=== PATIENT | male | born 1965 | race Caucasian/White ===

== ENCOUNTER 2019-07-23 07:39 | Outpatient (CLI) | payer BC, SELFPAY ==
--- NOTE | ~2019-07-23 | CT_ITS ---
EXAMINATION: CT lung screening EXAM DATE: 07/23/2019 08:05 INDICATION: Personal history of nicotine dependence. TECHNIQUE: Spiral low dose CT of the chest without contrast. Axial, coronal and sagittal images were reviewed. The dose-length product (DLP) for this examination was 155.12 mGy-cm. The exposure was t ailored according to patient size (auto mA exposure control), and iterative reconstruction (ASIR) was used as additional dose reduction technique. There is no prior study for comparison. FINDINGS: There is 2-3 mm pleural-based left lower lobe nodule on image 67 likely postinfectious. No suspicious pulmonary nodules. There is mild emphysema and hyperinflation. Tracheobronchial tree is patent. There is no mediastinal, hilar or axillary lymphadenopathy. There are no pleural or peric ardial effusions. There is no pneumothorax. Heart normal in size. There is moderate coronary ar terial calcification, arterial sclerosis. Upper abdomen is unremarkable. There is moderate thoracic spondylosis without osteoblastic or osteolytic lesions identified. IMPRESSION: Lung-RADS category 2, benign appearance or behavior (<1% chance of malignancy); recommend continued LDCT screening in 1 year. > Reviewed, dictated and finalized at location A. 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
== END 2019-07-23 07:40 | disposition home or self-care (01) ==
PROVIDERS: PCP Family Medicine; Visit Provider Physician Assistant
DX: Z12.2 Encounter for screening for malignant neoplasm of respiratory organs (principal); Z87.891 Personal history of nicotine dependence
CPT/HCPCS: G0297

== ENCOUNTER 2019-10-13 11:51 | Outpatient (CLI) | payer BC, SELFPAY ==
--- NOTE | ~2019-10-13 | CT_ITS ---
EXAMINATION: CT abdomen pelvis w con DATE: 10/13/2019 12:28 INDICATION: Abdominal pain, nausea and vomiting TECHNIQUE: Computed tomography (CT) of the abdomen and pelvis was performed with 100 cc Omnipaque 350 intravenous contrast. Automated exposure control and iterative reconstruction technique were employe d. Exam dose: 539.51 mGy-cm total exam DLP. COMPARISON: 01/04/2018 CT abdomen pelvis FINDINGS: The lung bases are clear of infiltrate or consolidation. Normal heart size. No pericardial or pleural effusion. There is extensive hepatic steatosis. No hepatic, splenic, pancreatic, adrenal or renal space-occupyi ng mass lesion is evident. No urinary tract calculus or hydroureteronephrosis. There is calcification but no aneurysm of the abdominal aorta. No intraperitoneal or retroperitoneal or pelvic mass lesion or adenopathy or ascites. There is prostate mild enlargement and prostate calcification. The urinary bladder is unremarkable. No bowel obstruction is evident. Status post appendectomy. No intraperitoneal free air. Small fat-containing umbilical and right inguinal hernias. Degenerative changes of the thoracic and lumbar spine. IMPRESSION: Hepatic steatosis No bowel obstruction or free air Reviewed, dictated and finalized at Location A. Reviewed, dictated and finalized at location A.
[2019-10-13 12:22] LABS: Estimated Glomerular Filt Rate > 60
[2019-10-13 12:53] LABS: Basophils Percent Auto 0.7 % (0.2-1.2); Eosinophils Percent Auto 0.5 % (0-4.4); Hematocrit 45.8 % (42.0-52.0); Hemoglobin 16.3 g/dL (14.0-18.0); Immature Granulocyte Absolute 0.02 K/mm3 (0.00-0.031); Immature Granulocyte Percent A 0.3 % (0-0.5); Lymphocytes Absolute Auto 0.77 K/mm3 (0.9-3.2); Lymphocytes Percent Auto 13.1 % (18.3-44.2); Mean Corpuscular HGB Conc 35.6 g/dl (32-36); Mean Corpuscular Volume 92.7 fl (80-100); Mean Platelet Volume 8.5 fl (7.4-10.4); Monocytes Absolute Auto 0.5 K/mm3 (0.1-0.6); Monocytes Percent Auto 8.3 % (2.6-8.5); Neutrophils Absolute Auto 4.5 K/mm3 (1.3-6.7); Neutrophils Percent Auto 77.1 % (45.5-73.1); Platelet Count Result 141 k/mm3 (150-375); Red Blood Count 4.94 M/mm3 (4.6-6.20); Red Cell Distribution Width 12.8 % (11.5-14.5); White Blood Count 5.9 K/mm3 (4.5-10.0)
[2019-10-13 13:07] LABS: Alanine Aminotransferase 193 U/L (4-50); Albumin Level 3.7 g/dL (3.5-5.1); Alkaline Phosphatase 189 U/L (38-126); Amylase 78 U/L (30-110); Aspartate Amino Transferase 616 U/L (17-59); Bilirubin,Total 2.1 mg/dL (0.2-1.3); Blood Urea Nitrogen 14 mg/dL (9-20); Calcium 8.4 mg/dL (8.4-10.2); Carbon Dioxide 24 mmol/L (22-30); Chloride 100 mmol/L (98-107); Estimated Glomerular Filt Rate > 60; Glucose 98 mg/dL (75-110); Lipase 187 U/L (23-300); Potassium 4.1 mmol/L (3.4-5.0); Sodium 132 mmol/L (137-145)
== END 2019-10-13 11:52 | disposition home or self-care (01) ==
PROVIDERS: PCP Family Medicine; Visit Provider Physician Assistant
DX: R10.9 Unspecified abdominal pain (principal); K76.0 Fatty (change of) liver, not elsewhere classified
CPT/HCPCS: 36415; 74177; 80053; 82150; 83690; 85025; Q9967

== ENCOUNTER 2019-10-14 07:37 | Outpatient (CLI) | payer BC, SELFPAY ==
--- NOTE | ~2019-10-14 | US_ITS ---
EXAMINATION: US right upper quadrant DATE: 10/14/2019 08:18 INDICATION: Abnormal liver function tests. TECHNIQUE: Multiple grayscale and Doppler ultrasound images of the abdomen were obtained. COMPARISON: CT abdomen and pelvis 10/13/2019 FINDINGS: The visualized portions of the head, body, and tail of the pancreas are normal. There is di ffuse hepatic steatosis. No liver surface nodularity. The gallbladder is normal in size. No gallstone s or gallbladder wall thickening. There was no sonographic Marte sign. The common duct is normal and measures 4 mm. There is normal flow in main portal vein. IMPRESSION: 1. Diffuse hepatic steatosis. Reviewed, dictated and finalized at location A.
== END 2019-10-14 07:38 | disposition home or self-care (01) ==
PROVIDERS: PCP Family Medicine; Visit Provider Family Medicine
DX: R10.9 Unspecified abdominal pain (principal); R74.8 Abnormal levels of other serum enzymes; K76.0 Fatty (change of) liver, not elsewhere classified
CPT/HCPCS: 76705

== ENCOUNTER 2020-10-05 09:40 | Emergency (ER) | payer BC, SELFPAY ==
[2020-10-05] VITALS (9 sets, daily range): BP systolic 140–192; BP diastolic 93–113; PULSE 87–97; RESP 15–28; TEMP 36.6; O2SAT 96–100
--- NOTE | ~2020-10-05 | XR_ITS ---
EXAMINATION: XR chest 1V portable DATE: 10/05/2020 11:08 INDICATION: One month of dyspnea TECHNIQUE: frontal view of the chest was obtained. COMPARISON: Chest radiograph dated 12/10/[address] dated 07/23/2019 FINDINGS: The lungs are clear with no focal airspace opacities, pulmonary edema, pleural effusion or pneumothor ax. The cardiomediastinal silhouette is normal. Moderate thoracic spondylosis. IMPRESSION: 1. No acute cardiopulmonary disease. Reviewed, dictated and finalized at location A.
--- NOTE | 2020-10-05 09:46 | ECG_ITS ---
Measurements Intervals [place] Rate: 103 P: 78 OR: 118 QRS: 67 QRSD: 85 T: 55 QT: 339 QTc: 444 Interpretive Statements SINUS TACHYCARDIA WITH SHORT OR INTERVAL INCOMPLETE RIGHT BUNDLE BRANCH BLOCK BASELINE ARTIFACT- I, II, III, AVR, AVL, AVF, V1-V5 ABNORMAL ECG Electronically Signed On 10-05-2020 10:31:05 CDT by Albert Jim D.O.
--- NOTE | 2020-10-05 09:54 | ED.SOB ---
HPI - SOB/Dyspnea General Chief Complaint: Shortness of Breath/Dyspnea Stated Complaint: diff breathing onset 2 hrs ago Time Seen by Provider: 10/05/20 09:54 History of Present Illness HPI Narrative: 55 yo male w/ h/o htn presents to the ED for SOB. He has been acutely SOB for the past 2 hours. Although he says that he has had mild intermittent dyspnea for the past week. This is primarily with exertion. He does report mild orthopnea as well. He reports no h/o respiratory disorder although he does have a prescription for albuterol. He has had intermittent chills, no fever. No Chest pain. No leg swelling or pain. Related Data Home Medications Medication Instructions Recorded Confirmed aspirin 81 mg tablet,delayed 81 mg PO DAILY 05/27/19 10/13/19 release omeprazole 20 mg capsule,delayed 20 mg PO DAILY 05/27/19 release Allergies Allergy/AdvReac Type Severity Reaction Status Date / Time No Known Allergies Allergy Verified 10/05/20 09:52 Review of Systems Review of Systems: All systems reviewed & are unremarkable except as noted in HPI and below Constitutional: Constitutional: Reports chills, Reports fatigue and Denies fever(s) Eyes: Eyes: Reports no additional eye complaints Cardiovascular: Cardiovascular: Denies chest pain Respiratory: Respiratory: Reports chest congestion, Reports cough, Reports dyspnea and Reports wheezing Gastrointestinal: Gastrointestinal: Denies abdominal pain, Denies nausea and Denies vomiting Genitourinary: Genitourinary: Reports no additional male genitourinary complaints Musculoskeletal: Musculoskeletal: Denies back pain Neurologic: Denies confusion, Denies dizziness and Denies weakness [facility] Past Medical History Medical History Alcohol dependence, uncomplicated Anxiety Essential (primary) hypertension Surgical History Surgical History H/O vasectomy History of appendectomy (~12/2017) Family History Family History Father Hypertension Mother Hypertension Family history of malignant neoplasm of breast in first degree relative Other Asthma Family history of Alzheimer's disease Social History Social History Smoking packs per day: 2 Smoking cigarettes per day: 40.0 Years smoked: 20 Smoking pack-years: 40.00 Smoking status: Current every day smoker Alcohol intake: current Drinks per week: 70 Exam Const: General: alert and ill appearing acutely Nutritional Appearance: well nourished Orientation/consciousness: patient oriented x3 Other: Mild distress. HENMT: Head: normal to inspection Neck: Neck: normal visual inspection Chest: Chest palpation & inspection: no tenderness Resp: Effort & Inspection: labored and tachypneic Auscultation: wheezes left upper and diminished lung sounds Cardio: Rate: regular rate Rhythm: regular rhythm GI: GI Palp: Yes Soft to palpation and No Tenderness to palpation present (GI) Skin: General skin exam: normal color Neuro: General: patient oriented x3, moves all extremities, no focal motor deficits and CN's II-XI intact bilaterally Speech: normal speech Extrem: General: normal to inspection and no edema Course Vital Signs Vital signs: Vital Signs Temperature 36.6 C 10/05/20 09:46 Pulse Rate 97 10/05/20 09:46 Respiratory Rate 28 H 10/05/20 09:46 Blood Pressure 192/113 H 10/05/20 09:46 Pulse Oximetry 96 10/05/20 09:46 Temperature 36.6 C 10/05/20 09:46 Pulse Rate 92 10/05/20 12:52 Respiratory Rate 18 10/05/20 12:52 Blood Pressure 140/93 H 10/05/20 12:52 Pulse Oximetry 100 10/05/20 12:52 MDM - SOB/Dyspnea MDM Narrative Medical decision making narrative: CXR negative. Most likely undiagnosed COPD. Will do continuous nebulizer treatment, s
--- NOTE | 2020-10-05 10:07 | PC.NURSE ---
pt put on 2L of 02 via nasal cannula per EDP verbal order for comfort.
[2020-10-05 10:08] LABS: Basophils Absolute Auto 0.1 K/mm3 (0.0-0.1); Basophils Percent Auto 0.4 % (0.2-1.2); Eosinophils Absolute Auto 0.1 K/mm3 (0-0.3); Eosinophils Percent Auto 0.4 % (0-4.4); Hematocrit 42.6 % (42.0-52.0); Hemoglobin 15.2 g/dL (14.0-18.0); Immature Granulocyte Absolute 0.11 K/mm3 (0.00-0.031); Immature Granulocyte Percent A 0.8 % (0-0.5); Lymphocytes Absolute Auto 0.45 K/mm3 (0.9-3.2); Lymphocytes Percent Auto 3.2 % (18.3-44.2); Mean Corpuscular HGB Conc 35.7 g/dl (32-36); Mean Corpuscular Hemoglobin 32.9 pg (26-34); Mean Corpuscular Volume 92.2 fl (80-100); Mean Platelet Volume 8.2 fl (7.4-10.4); Monocytes Absolute Auto 0.8 K/mm3 (0.1-0.6); Neutrophils Absolute Auto 12.4 K/mm3 (1.3-6.7); Neutrophils Percent Auto 89.2 % (45.5-73.1); Platelet Count Result 168 k/mm3 (150-375); Red Blood Count 4.62 M/mm3 (4.6-6.20); Red Cell Distribution Width 12.1 % (11.5-14.5); White Blood Count 13.9 K/mm3 (4.5-10.0)
[2020-10-05 10:16] LABS: Anion Gap 8 mmol/L (8-16); Blood Urea Nitrogen 7 mg/dL (9-20); Calcium 9.8 mg/dL (8.4-10.2); Carbon Dioxide 24 mmol/L (22-30); Chloride 101 mmol/L (98-107); Estimated CRCL calculation 107 ml/min; Estimated Glomerular Filt Rate > 60; Glucose 117 mg/dL (75-110); Sodium 133 mmol/L (137-145)
[2020-10-05] MEDS: DEXAMETHASONE SOD PHOS INJ 4 MG/ML VIAL 10 MG IV PUSH (10:31)
[2020-10-05 10:54] LABS: NT Pro B Type Natriuretic Pept 120 pg/mL (5-100); Troponin I < 0.012 ng/mL (0.000-0.034)
[2020-10-05] MEDS: IPRATROPIUM BR 0.02% INH SOLN 0.5 MG/2.5 ML VIAL 1 MG INHALATION (11:09)
[2020-10-05] MEDS: ALBUTEROL SULFATE NEB 2.5 MG/0.5 ML INH 10 MG INHALATION (11:10)
[2020-10-05 11:31] LABS: Alveolar/Arterial O2 Gradient 45.9 mmHg; Base Excess ABG -0.1 mEq/l (+/-2.0); Carboxyhemoglobin 2.7 % THb (0-2.0); Fractional Inspired Oxygen 28 %; HCO3 ABG 24.4 mEq/l (22.0-26.0); Methemoglobin ABG 0.2 %THb (0-1.5); Oxygen Content ABG 20.9 %vol (16.0-22.0); PCO2 ABG 39.5 mmHg (35.0-45.0); PO2 ABG 107.1 mmHg (80.0-100.0); PO2 FiO2 Ratio Arterial Blood 3.83 %; Reduced Hemoglobin 2.1 %THb (0-5.0); Total Hemoglobin 15.6 g/dL (12.0-18.0); pH ABG 7.409 (7.350-7.450)
[2020-10-05 11:32] LABS: Device NASAL CANNULA; Site Drawn LEFT BRACHIAL
[2020-10-05] MEDS: LABETALOL HCL INJ 100 MG/20 ML VIAL 10 MG IV PUSH (12:06)
== END 2020-10-05 12:54 | disposition home or self-care (01) ==
PROVIDERS: Emergency Provider Emergency Medicine; PCP Family Medicine
DX: J44.1 Chronic obstructive pulmonary disease with (acute) exacerbation (principal); I10 Essential (primary) hypertension; F17.210 Nicotine dependence, cigarettes, uncomplicated; Z79.82 Long term (current) use of aspirin
CPT/HCPCS: 36415; 36600; 71045; 80048; 82375; 82805; 83050; 83880; 84484; 85025; 93005; 94640; 96374; 96375; 99284; J1100

== ENCOUNTER 2020-10-25 06:35 | Outpatient (CLI) | payer BC, SELFPAY ==
--- NOTE | ~2020-10-25 | CT_ITS ---
EXAMINATION: CT lung screening DATE: 10/25/2020 06:55 INDICATION: Personal history of nicotine dependence, current smoker with 30 pack year history TECHNIQUE: Computed tomography (CT) of the chest was performed without intravenous contrast. The dose -length product (DLP) was 205.24 mGy-cm. Automated exposure control and iterative reconstruction tech [employer] were employed. COMPARISON: 07/03/2019 FINDINGS: There is mild emphysema. A few fissural lymph nodes are noted. No suspicious pulmonary nodu les are identified. There is no pleural effusion or pneumothorax. No pathologically enlarged thoracic lymph nodes are identified. The heart size is normal. Calcified coronary artery atherosclerosis is n oted. There is moderate thoracic spondylosis. IMPRESSION: 1. Lung-RADS category 2: Benign appearance or behavior. Continue annual screening with noncontrast lo w-dose chest CT in 12 months. Reviewed, dictated and finalized at location A. IMPRESSION: 1. Lung-RADS category 2: Benign appearance or behavior. Continue annual screeni ng with noncontrast low-dose chest CT in 12 months.
== END 2020-10-25 06:36 | disposition home or self-care (01) ==
PROVIDERS: PCP Family Medicine; Visit Provider Physician Assistant Medical
DX: Z12.2 Encounter for screening for malignant neoplasm of respiratory organs (principal); Z87.891 Personal history of nicotine dependence
CPT/HCPCS: 71271

== ENCOUNTER 2020-11-10 08:01 | Outpatient (CLI) | payer BC, SELFPAY ==
--- NOTE | 2020-11-17 12:11 | WPDPFTINT ---
PFT Procedure Performed PFT Procedure Performed Spirometry with Pre/Post Bronchodilator Plethysmography (Lung Vol) Diffusing Cap (DLCO) Flow Vol Loop PFT Interpretation DOS: 11/10/2020 REQUESTING: Dr. Powers REASON FOR TESTING: shortness of breath PULMONARY FUNCTION TESTS Results are reliable and reproducible. Spirometry: FEV1 is 57%, 1.91 L moderately decreased. FVC is 81% normal. FEV1/ FVC is decreased 55%. There is a 16% increase in the FEV1 after bronchodilator administration, greater than 200 ml, which is a significant response. Lung volumes: Total lung capacity 129% consistent with mild hyperinflation. Residual volume is 182% and this is consistent with severe air trapping. RV/TLC is increased 44 % also consistent with air trapping. Airway resistance is increased 248%. Diffusion: DLCO 79%, mildly decreased. Flow volume loop: Mild scooping of the expiratory limb. Inspiratory limb is normal. IMPRESSION: Moderate obstructive ventilatory defect with good response to bronchodilator, mild hyperinflation, severe air trapping and mild decrease in diffusion which may be due to tobacco smoking. In the proper clinical setting, this may represent asthma-COPD overlap. Evelia Henry MD
== END 2020-11-10 08:02 | disposition home or self-care (01) ==
LOC: ANHPFT 08:03
PROVIDERS: PCP Family Medicine; Visit Provider Family Medicine
DX: R06.09 Other forms of dyspnea (principal)
CPT/HCPCS: 94060; 94726; 94729

== ENCOUNTER 2021-04-11 13:24 | Emergency (ER) | payer BC, SELFPAY ==
--- NOTE | ~2021-04-11 | CT_ITS ---
EXAMINATION: CTA brain carotid EXAM DATE: 04/11/2021 17:02 INDICATION: neck pain/hill/dizziness. Right-sided head pain, neck pain. TECHNIQUE: Noncontrast head CT. Spiral CTA of the carotid arteries was performed with intravenous i njection 100 cc of Omnipaque 350. Axial, coronal, sagittal reformatted images reviewed. Additional r eformatted images created on dedicated 3-D workstation. NASCET comparable standard used to assess th e degree of arterial stenosis. Spiral CT angiogram cerebral arteries performed with the same intrave nous injection of contrast. Source images of the brain CTA transferred to dedicated workstation for 3 -D rotational image creation. Coronal, sagittal maximum intensity pixel images also reviewed. The d ose-length product (DLP) for this examination was 1242.23 mGy-cm. The exposure was tailored accordi ng to patient size, and iterative reconstruction (ASIR) was used as additional dose reduction techniq ue. Comparison is made to prior examination from 04/30/2016. FINDINGS: There is moderate left carotid bulb, mild right carotid bulb arterial sclerosis and atheros clerosis. There is 25% left carotid bulb stenosis, 0% stenosis on the right. The vertebral arteries a re codominant. There is no carotid or vertebral basilar arterial dissection or fibromuscular dysplas ia. There are no cerebral artery aneurysms. There is symmetric cerebral artery arborization. The sagi ttal, transverse and sigmoid sinuses enhance normally, no venous sinus thrombosis. Internal cerebral veins also enhance normally. Mild microangiopathy.There is no acute intraparenchymal hemorrhage. No evidence of intraparenchymal brain mass lesion. No evidence of acute infarction. There is no mass effect or midline shift. There is no obstructive hydrocephalus suspected. There are no extra-axial collections. There are no areas of abnormal enhancement on the post contrast images. Incidental Findings: There is moderate to severe disc disease at C5-6 and 6-7, significant neural for aminal stenosis at these 2 levels and also at C3-4 mostly from uncovertebral joint arthropathy. There is moderate reversal of the normal cervical lordosis which may be positional or spasm. IMPRESSION: 1. No acute carotid or intracranial findings. 2. Left carotid bulb 25% stenosis. Right carotid bulb 0% stenosis. 3. Advanced cervical uncovertebral joint arthropathy with significant neural foraminal stenosis C3-4 , C5-6 and 6-7. Reviewed, dictated and finalized at location A. RMATION CLERK BROKERAGE IMPRESSION: 1. No acute carotid or intracranial findings. 2. Left carotid bulb 25% stenosis. Right carotid bulb 0% stenosis. 3. Advanced cervical uncovertebral joint arthropathy with significant neural f oraminal stenosis C3-4, C5-6 and 6-7.
[2021-04-11 13:26] VITALS: BP 188/98; PULSE 80; RESP 18; TEMP 36.7; O2SAT 99
--- NOTE | 2021-04-11 13:39 | ECG_ITS ---
Measurements Intervals [place] Rate: 74 P: 63 VT: 150 QRS: 50 QRSD: 89 T: 46 QT: 375 QTc: 417 Interpretive Statements SINUS RHYTHM INCOMPLETE RIGHT BUNDLE BRANCH BLOCK BASELINE ARTIFACT- II, III, AVF BORDERLINE ECG Electronically Signed On 04-11-2021 13:51:28 EMPLOYEE DEVELOPMENT SPECIALIST by Albert Jim D.O.
--- NOTE | 2021-04-11 15:30 | ED.DIZZY ---
HPI - Dizziness General Chief Complaint: Dizziness Stated Complaint: head and neck pain, dizzy Time Seen by Provider: 04/11/21 13:44 Source: patient Mode of arrival: ambulatory Limitations: no limitations History of Present Illness HPI Narrative: 56-year-old male Patient says he felt fine when he woke up this morning While he was on his way to work, which is [employer], he started having a sharp pain in the right occiput just behind the ear which subsequently spread down more into the neck This is accompanied by a feeling of dizziness which he describes kind of vaguely, did not feel like he was going to faint although he notes that he has never fainted so he is not quite sure what it would feel like, and does not report a feeling of true vertigo with a spinning type of sensation either He took some OTC medication and the symptoms have abated to a great extent but not resolved He does not report any other sensory issues, no hearing loss, no tinnitus, no double vision He also does not have any new weakness or ataxia He reports that a number of years ago he had an episode of dizziness which to the best of his recollection was much more severe and ultimately diagnosed as a TIA Related Data Home Medications Medication Instructions Recorded Confirmed aspirin 81 mg tablet,delayed 81 mg PO DAILY 05/27/19 10/11/20 release omeprazole 20 mg capsule,delayed 20 mg PO DAILY 05/27/19 10/11/20 release Allergies Allergy/AdvReac Type Severity Reaction Status Date / Time No Known Allergies Allergy Verified 04/11/21 13:40 Review of Systems Review of Systems: All systems reviewed & are unremarkable except as noted in HPI and below Constitutional: Constitutional: Reports no additional constitutional complaints, Denies chills, Denies fever(s) and Denies headache(s) Eyes: Eyes: Reports no additional eye complaints and Denies change in vision ENT: Reports dizziness, Denies headache(s) and Denies sore throat Cardiovascular: Cardiovascular: Denies chest pain and Denies dyspnea Respiratory: Respiratory: Denies cough and Denies dyspnea Gastrointestinal: Gastrointestinal: Denies abdominal pain, Denies diarrhea, Denies nausea and Denies vomiting Genitourinary: Genitourinary: Denies dysuria and Denies urinary frequency Musculoskeletal: Musculoskeletal: Denies deformity, Denies arthralgias, Denies joint swelling and Denies numbness Integumentary/Breasts: Skin/Breast: Denies rash and Denies wounds Neurologic: Reports dizziness, Reports headache(s), Denies focal weakness and Denies numbness Psychiatric: Psychiatric: Reports no additional psychiatric complaints Endocrine: Endocrine: Reports no additional endocrine complaints Hematologic/Lymphatic: Hematologic/Lymphatic: Reports no additional hematologic/lymphatic complaints Allergic/Immunologic: Allergic/Immunologic: Reports no additional allergic/immunologic complaints PMFSH Past Medical History Medical History Alcohol dependence, uncomplicated Anxiety Essential (primary) hypertension Surgical History Surgical History H/O vasectomy History of appendectomy (~12/2017) Family History Family History Father Hypertension Mother Hypertension Family history of malignant neoplasm of breast in first degree relative Other Asthma Family history of Alzheimer's disease Social History Social History Smoking packs per day: 1.5 Smoking cigarettes per day: 30.0 Years smoked: 20 Smoking pack-years: 30.00 Smoking status: Current every day smoker Alcohol intake: current Drinks per week: 70 Alcohol use details: 8-10 beers per day Exam Const: General: cooperative, no acute distress and alert Orientation/consciousness: patient darlene
[2021-04-11 16:01] LABS: Basophils Percent Auto 0.5 % (0.2-1.2); Eosinophils Absolute Auto 0.1 K/mm3 (0-0.3); Eosinophils Percent Auto 1.4 % (0-4.4); Hematocrit 40.7 % (42.0-52.0); Hemoglobin 14.1 g/dL (14.0-18.0); Immature Granulocyte Absolute 0.02 K/mm3 (0.00-0.031); Immature Granulocyte Percent A 0.3 % (0-0.5); Lymphocytes Absolute Auto 1.23 K/mm3 (0.9-3.2); Lymphocytes Percent Auto 18.6 % (18.3-44.2); Mean Corpuscular HGB Conc 34.6 g/dl (32-36); Mean Corpuscular Hemoglobin 33.5 pg (26-34); Mean Corpuscular Volume 96.7 fl (80-100); Mean Platelet Volume 8.4 fl (7.4-10.4); Monocytes Absolute Auto 0.7 K/mm3 (0.1-0.6); Monocytes Percent Auto 10.1 % (2.6-8.5); Neutrophils Absolute Auto 4.6 K/mm3 (1.3-6.7); Neutrophils Percent Auto 69.1 % (45.5-73.1); Platelet Count Result 171 k/mm3 (150-375); Red Blood Count 4.21 M/mm3 (4.6-6.20); Red Cell Distribution Width 12.2 % (11.5-14.5); White Blood Count 6.6 K/mm3 (4.5-10.0)
[2021-04-11 16:07] LABS: INR 0.9; Prothrombin Time 12.4 Seconds (11.1-14.7)
[2021-04-11 16:16] VITALS: BP 150/94; PULSE 74
[2021-04-11 16:18] LABS: Anion Gap 4 mmol/L (8-16); Blood Urea Nitrogen 11 mg/dL (9-20); Calcium 8.8 mg/dL (8.4-10.2); Carbon Dioxide 29 mmol/L (22-30); Chloride 102 mmol/L (98-107); Estimated CRCL calculation 85 ml/min; Estimated Glomerular Filt Rate > 60; Glucose 88 mg/dL (65-110); Potassium 3.6 mmol/L (3.4-5.0); Sodium 135 mmol/L (137-145)
[2021-04-11 16:19] VITALS: BP 168/93; PULSE 76
[2021-04-11 16:21] VITALS: BP 162/92; PULSE 75
[2021-04-11 16:30] LABS: Troponin I < 0.012 ng/mL (0.000-0.034)
[2021-04-11 19:02] VITALS: BP 157/85; PULSE 71; RESP 18; O2SAT 98
== END 2021-04-11 19:03 | disposition home or self-care (01) ==
PROVIDERS: Emergency Provider Emergency Medicine; PCP Family Medicine
DX: M47.812 Spondylosis without myelopathy or radiculopathy, cervical region (principal); R42 Dizziness and giddiness; M54.2 Cervicalgia; F17.210 Nicotine dependence, cigarettes, uncomplicated; I10 Essential (primary) hypertension; F41.9 Anxiety disorder, unspecified
CPT/HCPCS: 36415; 70496; 70498; 80048; 84484; 85025; 85610; 93005; 99284; Q9967

== ENCOUNTER 2021-12-07 10:44 | Emergency (ER) | payer BC, SELFPAY ==
--- NOTE | ~2021-12-07 | CT_ITS ---
EXAMINATION: CT abdomen pelvis w con DATE: 12/07/2021 12:19 INDICATION: Epigastric pain and dizziness. TECHNIQUE: Computed tomography (CT) of the abdomen and pelvis was performed with 100 cc Omnipaque 300 intravenous contrast. The dose-length product was 1168.68 mGy-cm. Automated exposure control and ite rative reconstruction technique were employed. COMPARISON: CT dated 10/13/2019. FINDINGS: Lung bases are unremarkable. Heart size normal. No significant pleural or pericardial effus ion. There is mild atherosclerosis without aneurysm. No lymphadenopathy. Fatty infiltration of the liver. Gallbladder is present. The spleen, pancreas, adrenal glands and rig ht kidney are unremarkable. Small subcentimeter hypodensity exophytic posteriorly from the left kidne y, too small to characterize, although likely a benign cyst. Nonobstructive bowel gas pattern. There is an accessory splenule. Small fat-containing umbilical hernia. Mild lumbar spondylosis. No acute fracture or traumatic malalignment. IMPRESSION: 1. No acute abdominal abnormality. 2: Hepatic steatosis. Reviewed, dictated and finalized at location A.
--- NOTE | ~2021-12-07 | CT_ITS ---
EXAMINATION: CT brain wo con INDICATION: Dizziness COMPARISON: 04/11/2021 TECHNIQUE: Standard unenhanced head CT. The dose-length product (DLP) was 605.33 mGy-cm. The mA was a djusted according to patient size. Iterative reconstruction technique was employed. FINDINGS: There is no intracranial hemorrhage, acute infarction, or abnormal mass lesion. The ventric les are normal. There is no abnormal mass effect or midline shift. The skinner-white matter differentiat ion is normal. The basal cisterns are patent. The orbits are normal. The paranasal sinuses, mastoids and calvarium are normal. IMPRESSION: 1. No acute intracranial abnormality. Reviewed, dictated and finalized at location B.
[2021-12-07 10:45] VITALS: BP 182/103; PULSE 84; RESP 20; TEMP 36.4; O2SAT 98
--- NOTE | 2021-12-07 10:48 | ECG_ITS ---
Measurements Intervals [place] Rate: 87 P: 50 MT: 144 QRS: 40 QRSD: 85 T: 37 QT: 343 QTc: 413 Interpretive Statements SINUS RHYTHM INCOMPLETE RIGHT BUNDLE BRANCH BLOCK BASELINE ARTIFACT- III, AVL, AVF BORDERLINE ECG Electronically Signed On 12-07-2021 15:30:04 CDT by Albert Jim D.O.
--- NOTE | 2021-12-07 10:50 | PC.NURSE ---
While pt was having blood drawn he become unresponsive to staff. Eyes were open with blank stare and pt was diaphoretic. Episode lasted approx 30 sec and pt was disoriented when episode was over.
--- NOTE | 2021-12-07 11:03 | ED.DIZZY ---
HPI - Dizziness General Chief Complaint: Dizziness Stated Complaint: dizzy Time Seen by Provider: 12/07/21 10:55 History of Present Illness HPI Narrative: 56-year-old male presents emergency room secondary to dizziness. He been complaining of dizziness according to his for a month. Apparently got worse today so he got concerned and wanted to come to the emergency department. What he describes as a spinning type sensation and seem to be worse when he changes position or moves his head. Denies any focal weakness. Is an alcoholic. He drinks excessive amount of beer every day. His states that recently he will be sitting out and she has to try to get him to come in a house and she has to assist him in getting up and getting into the house so that he does not fall. Denies any history of cardiac abnormalities however he is taking Plavix and aspirin. Also taking a statin. He is not a good historian. Related Data Home Medications Medication Instructions Recorded Confirmed aspirin 81 mg tablet,delayed 81 mg PO DAILY 05/27/19 10/11/20 release (Adult Low Dose Aspirin) omeprazole 20 mg capsule,delayed 20 mg PO DAILY 05/27/19 10/11/20 release Allergies Allergy/AdvReac Type Severity Reaction Status Date / Time No Known Allergies Allergy Verified 04/11/21 13:40 Review of Systems Review of Systems: CONSTITUTIONAL: Denies fever, chills, or sweats. EYES: Denies visual changes, redness, or discharge. ENT: Denies rhinorrhea, congestion, sore throat, or otalgia. CARDIOVASCULAR: Denies chest pain, palpitations, or edema. RESPIRATORY: Denies cough or dyspnea. GASTROINTESTINAL: Upper abdominal pain with no associated vomiting diarrhea GENITOURINARY: Denies dysuria or hematuria. SKIN: Denies rash or itching. MUSCULOSKELETAL: Denies back pain, joint pain, or myalgia. NEUROLOGIC: Dizziness but no focal weakness PSYCHIATRIC: Denies anxiety or depression. [facility] Past Medical History Medical History Alcohol dependence, uncomplicated Anxiety Essential (primary) hypertension Surgical History Surgical History H/O vasectomy History of appendectomy (~12/2017) Family History Family History Father Hypertension Mother Hypertension Family history of malignant neoplasm of breast in first degree relative Other Asthma Family history of Alzheimer's disease Social History Social History Smoking packs per day: 1.5 Smoking cigarettes per day: 30.0 Years smoked: 20 Smoking pack-years: 30.00 Smoking status: Current every day smoker Alcohol intake: current Drinks per week: 70 Alcohol use details: 8-10 beers per day Exam Narrative: APPEARANCE: Not well appearing, no pain or distress, well-nourished. Head normocephalic and atraumatic. EYES: PERRLA/EOMI, conjunctivae very clear. Lateral nystagmus greater to the left NOSE: Normal with no drainage EARS:TMS clear Karen Maynard, with good light reflex. THROAT: Pharynx clear, no exudate. NECK: Supple. No adenopathy, no masses. RESPIRATORY: Airway patent, respirations nonlabored. Clear to auscultation bilaterally, no rales, rhonchi, wheezing. CARDIOVASCULAR: Regular rate and rhythm without murmurs, rubs, or gallops. ABDOMINAL: Soft, nontender, nondistended, no hepatosplenomegaly Musculoskeletal: Moves all extremities. Strength/ROM intact, No edema, No calf tenderness. NEURO: Cranial nerves II through XII intact. Nonfocal examination. Tremors noted and has an unsteady when he tries to stand SKIN:: Warm, dry. Normal Color PSYCHIATRIC: Normal affect/mood, normal interaction Course Vital Signs Vital signs: Vital Signs Temperature 97.5 F L 12/07/21 10:45 Pulse Rate 84 12/07/21 10:45 Respiratory Rate 20 12/07/21 10:45 Blood Pressure 182/103 H
[2021-12-07] MEDS: MECLIZINE HCL 25 MG TABLET PO (11:21)
[2021-12-07 11:23] LABS: Basophils Absolute Auto 0.1 K/mm3 (0.0-0.1); Basophils Percent Auto 0.7 % (0.2-1.2); Eosinophils Absolute Auto 0.1 K/mm3 (0-0.3); Hematocrit 42.9 % (42.0-52.0); Hemoglobin 15.7 g/dL (14.0-18.0); Immature Granulocyte Absolute 0.04 K/mm3 (0.00-0.031); Immature Granulocyte Percent A 0.6 % (0-0.5); Lymphocytes Percent Auto 14.2 % (18.3-44.2); Mean Corpuscular HGB Conc 36.6 g/dl (32-36); Mean Corpuscular Volume 92.9 fl (80-100); Mean Platelet Volume 8.4 fl (7.4-10.4); Monocytes Absolute Auto 0.5 K/mm3 (0.1-0.6); Monocytes Percent Auto 7.4 % (2.6-8.5); Neutrophils Absolute Auto 5.4 K/mm3 (1.3-6.7); Neutrophils Percent Auto 76.1 % (45.5-73.1); Platelet Count Result 148 k/mm3 (150-375); Red Blood Count 4.62 M/mm3 (4.6-6.20); Red Cell Distribution Width 13.1 % (11.5-14.5)
[2021-12-07 11:37] LABS: Basophils Percent Auto 0.4 % (0.2-1.2); Eosinophils Absolute Auto 0.1 K/mm3 (0-0.3); Eosinophils Percent Auto 0.7 % (0-4.4); Hematocrit 43.4 % (42.0-52.0); Hemoglobin 15.5 g/dL (14.0-18.0); Immature Granulocyte Absolute 0.03 K/mm3 (0.00-0.031); Immature Granulocyte Percent A 0.4 % (0-0.5); Lymphocytes Absolute Auto 0.93 K/mm3 (0.9-3.2); Lymphocytes Percent Auto 13.5 % (18.3-44.2); Mean Corpuscular HGB Conc 35.7 g/dl (32-36); Mean Corpuscular Hemoglobin 33.8 pg (26-34); Mean Corpuscular Volume 94.8 fl (80-100); Mean Platelet Volume 8.2 fl (7.4-10.4); Monocytes Absolute Auto 0.6 K/mm3 (0.1-0.6); Neutrophils Absolute Auto 5.3 K/mm3 (1.3-6.7); Platelet Count Result 130 k/mm3 (150-375); Red Blood Count 4.58 M/mm3 (4.6-6.20); Red Cell Distribution Width 13.1 % (11.5-14.5); White Blood Count 6.9 K/mm3 (4.5-10.0)
[2021-12-07 11:56] LABS: Anion Gap 4 mmol/L (8-16); Bilirubin,Total 0.9 mg/dL (0.2-1.3); Blood Urea Nitrogen 10 mg/dL (9-20); Calcium 8.6 mg/dL (8.4-10.2); Carbon Dioxide 25 mmol/L (22-30); Chloride 104 mmol/L (98-107); Estimated CRCL calculation 96 ml/min; Estimated Glomerular Filt Rate > 60; Glucose 116 mg/dL (65-110); Potassium 4.2 mmol/L (3.4-5.0); Sodium 133 mmol/L (137-145)
[2021-12-07 11:57] LABS: Alanine Aminotransferase 147 U/L (6-50); Albumin Level 3.8 g/dL (3.5-5.1); Alkaline Phosphatase 149 U/L (38-126); Aspartate Amino Transferase 284 U/L (17-59)
[2021-12-07 11:59] VITALS: BP 151/87; PULSE 88
[2021-12-07 12:01] VITALS: BP 164/104; PULSE 87
[2021-12-07 12:02] VITALS: BP 165/101; PULSE 90
[2021-12-07 12:56] VITALS: PULSE 89; RESP 15; O2SAT 100
[2021-12-07 13:32] LABS: Lipase 205 U/L (23-300)
[2021-12-07 14:08] LABS: Ammonia 12 umol/L (9-30)
[2021-12-07 17:00] LABS: Ethanol < 10 mg/dL (<10)
== END 2021-12-07 13:53 | disposition home or self-care (01) ==
PROVIDERS: Emergency Provider Emergency Medicine; PCP Emergency Medicine
DX: R42 Dizziness and giddiness (principal); R74.01 Elevation of levels of liver transaminase levels; K70.0 Alcoholic fatty liver; F10.20 Alcohol dependence, uncomplicated; I10 Essential (primary) hypertension; Z79.82 Long term (current) use of aspirin; F17.210 Nicotine dependence, cigarettes, uncomplicated
CPT/HCPCS: 36415; 70450; 74177; 80053; 80307; 82140; 83690; 85025; 93005; 99284; A9270; Q9967

== ENCOUNTER → 2022-06-14 08:08 | Outpatient (CLI) | payer BC, SELFPAY ==
--- NOTE | ~2022-06-14 | CT_ITS ---
EXAMINATION: CT lung screening DATE: 06/14/2022 08:26 INDICATION: Personal history nicotine dependence, current or 25 pack year history TECHNIQUE: Computed tomography (CT) of the chest was performed without intravenous contrast. The dose -length product (DLP) was 178.64 mGy-cm. 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 COMPARISON: 10/25/2020 FINDINGS: There is a 2 mm nodule of the right upper lobe. There is mild emphysema. Fissural lymph nod es are again noted. No pleural effusion or pneumothorax. No pathologically enlarged thoracic lymph no denis are identified. The heart size is normal. The lungs are free of acute opacities. Calcified cifuentes ry artery atherosclerosis is noted. The liver is diffusely low in attenuation when compared with the spleen, consistent with hepatic steatosis. There is moderate thoracic spondylosis. IMPRESSION: 1. Lung-RADS category 2: Benign appearance or behavior. Continue annual screening with noncontrast lo w-dose chest CT in 12 months. Reviewed, dictated and finalized at location [facility]. [place] IMPRESSION: 1. Lung-RADS category 2: Benign appearance or behavior. Continue annual screeni ng with noncontrast low-dose chest CT in 12 months.
== END ==
PROVIDERS: PCP Emergency Medicine; Visit Provider Emergency Medicine
DX: Z12.2 Encounter for screening for malignant neoplasm of respiratory organs (principal); F17.210 Nicotine dependence, cigarettes, uncomplicated
CPT/HCPCS: 71271

== ENCOUNTER 2023-02-14 09:48 | Outpatient (CLI) | payer BC, SELFPAY ==
[2023-02-14 19:08] LABS: Basophils Absolute Auto 0.1 K/mm3 (0.0-0.1); Basophils Percent Auto 0.5 % (0.2-1.2); Eosinophils Absolute Auto 0.1 K/mm3 (0-0.3); Eosinophils Percent Auto 1.1 % (0-4.4); Hemoglobin 15.2 g/dL (14.0-18.0); Immature Granulocyte Absolute 0.11 K/mm3 (0.00-0.031); Immature Granulocyte Percent A 1.1 % (0-0.5); Lymphocytes Absolute Auto 1.14 K/mm3 (0.9-3.2); Lymphocytes Percent Auto 11.6 % (18.3-44.2); Mean Corpuscular HGB Conc 33.8 g/dl (32-36); Mean Corpuscular Hemoglobin 34.8 pg (26-34); Mean Platelet Volume 8.7 fl (7.4-10.4); Monocytes Absolute Auto 0.8 K/mm3 (0.1-0.6); Monocytes Percent Auto 8.6 % (2.6-8.5); Neutrophils Absolute Auto 7.5 K/mm3 (1.3-6.7); Neutrophils Percent Auto 77.1 % (45.5-73.1); Platelet Count Result 182 k/mm3 (150-375); Red Blood Count 4.37 M/mm3 (4.6-6.20); Red Cell Distribution Width 12.4 % (11.5-14.5); White Blood Count 9.8 K/mm3 (4.5-10.0)
[2023-02-14 19:24] LABS: Alanine Aminotransferase 50 U/L (6-50); Albumin Level 4.4 g/dL (3.5-5.1); Alkaline Phosphatase 84 U/L (38-126); Anion Gap 3 mmol/L (8-16); Aspartate Amino Transferase 91 U/L (17-59); Bilirubin,Total 0.5 mg/dL (0.2-1.3); Blood Urea Nitrogen 7 mg/dL (9-20); Calcium 9.3 mg/dL (8.4-10.2); Carbon Dioxide 34 mmol/L (22-30); Chloride 100 mmol/L (98-107); Estimated Glomerular Filt Rate > 60; Glucose 94 mg/dL (65-110); Potassium 4.7 mmol/L (3.4-5.0); Sodium 137 mmol/L (137-145)
[2023-02-14 20:30] LABS: Folic Acid > 20.0 ng/mL (2.76->20)
== END 2023-02-14 09:49 | disposition home or self-care (01) ==
LOC: ANHGOSHLAB 09:50
PROVIDERS: PCP Emergency Medicine; Visit Provider Emergency Medicine
DX: F10.10 Alcohol abuse, uncomplicated (principal)
CPT/HCPCS: 36415; 80053; 82607; 82746; 85025

== ENCOUNTER 2023-12-22 14:00 | Outpatient (CLI) | payer BC, SELFPAY ==
--- NOTE | ~2023-12-22 | XR_ITS ---
XR hip RT 2V w AP pelvis Ordering provider: SHYANNE Jessica History: . PAIN IN RT HIP RADIATING DOWN TO RT CALF . Comparison: None. FINDINGS: BONES: No acute fracture or dislocation. HIP JOINT SPACES: Normal. SACROILIAC JOINT SPACES/LUMBAR SPINE: The sacroiliac joint spaces are normal. Mild degenerative allen es of the visualized lower lumbar spine. PUBIC SYMPHYSIS: Pubic symphysitis. SOFT TISSUES: Normal. IMPRESSION: No acute osseous abnormality pelvis and right hip. Reviewed, dictated and finalized at location A.
== END 2023-12-22 14:01 | disposition home or self-care (01) ==
LOC: ANHIMG 14:04
PROVIDERS: PCP Emergency Medicine; Visit Provider Nurse Practitioner Family
DX: M25.551 Pain in right hip (principal)
CPT/HCPCS: 73502

== ENCOUNTER 2024-02-07 16:35 | Emergency (ER) | payer BC, SELFPAY ==
--- NOTE | ~2024-02-07 | CT_ITS ---
EXAMINATION: CT brain wo con DATE: 02/07/2024 17:07 INDICATION: Head laceration. Patient on blood thinners. TECHNIQUE: Computed tomography (CT) of the head was performed without intravenous contrast. The mA wa s adjusted according to patient size. Iterative reconstruction technique was employed. Exam dose: 68 1.00 mGy-cm total exam DLP. COMPARISON: 12/07/2021 FINDINGS: No intracranial mass lesion or hemorrhage or cerebrovascular accident. No midline shift or mass effect. Bilateral carotid siphon internal carotid artery calcifications. No subdural or epidural hematoma. The orbital contents are unremarkable. No significant abnormality of the included paranasal sinuses and mastoid air cells. No fracture or bone destruction of the cranial vault. IMPRESSION: No skull fracture or acute intracranial finding Reviewed, dictated and finalized at [facility]. Reviewed, dictated and finalized at location A.
[2024-02-07 16:36] VITALS: BP 147/77; PULSE 64; RESP 18; TEMP 36.6; O2SAT 99
[2024-02-07 18:23] VITALS: BP 145/79; PULSE 60; RESP 18; O2SAT 100
--- NOTE | 2024-02-07 18:33 | ED.HEATRA ---
HPI - Head Injury General Chief complaint: Head Injury Stated complaint: head injury Time Seen by Provider: 02/07/24 18:03 Source: patient Mode of arrival: ambulatory Limitations: no limitations History of Present Illness HPI Narrative: This is a 58 year old male that presents to the ER for a head injury. Reports he stood up and hit his head on a car port. Reports laceration to the area. Reports he takes aspirin and Plavix daily. He did not lose consciousness. He is not up-to-date on tetanus. Denies vision changes, vomiting, numbness, or weakness. Related Data Home Medications Medication Instructions Recorded Confirmed aspirin 81 mg tablet,delayed 81 mg PO DAILY 05/27/19 10/01/23 release (Adult Low Dose Aspirin) multivitamin with minerals-folic tablet PO 10/01/23 10/01/23 acid 400 mcg-lycopene 370 mcg tablet (One-A-Day Men's 50 Plus) omega-3 fatty acids-fish oil 360 1 cap PO DAILY 10/01/23 10/01/23 mg-1,200 mg capsule (Fish Oil) Allergies Allergy/AdvReac Type Severity Reaction Status Date / Time No Known Allergies Allergy Verified 10/01/23 08:28 Review of Systems Review of Systems: CONSTITUTIONAL: Denies fever EYES: Denies visual changes GASTROINTESTINAL: Denies vomiting NEUROLOGIC: Reports headache. Denies numbness, or weakness. All systems reviewed & are unremarkable except as noted in HPI and below PMFSH Past Medical History Medical History Alcohol dependence, uncomplicated Anxiety Essential (primary) hypertension Surgical History Surgical History H/O vasectomy History of appendectomy (~12/2017) Family History Family History Father Hypertension Mother Hypertension Family history of malignant neoplasm of breast in first degree relative Other Asthma Family history of Alzheimer's disease Social History Social History (Updated 10/01/23 @ 08:32 by Elsa Montalvo MA) Social History: Caffeine-soda daily Smoking packs per day: 1.5 Smoking cigarettes per day: 30.0 Years smoked: 20 Smoking pack-years: 30.00 Smoking status: Current every day smoker (1.5 ppd. for 24 years.) Alcohol intake: former Substance use: never Substance use type: does not use Do You Feel Safe in your Home?: Yes Lack of Transportation: No Lack of Food: Never True Current Housing: I Have Housing Concerned About Future Housing: No Difficulty Paying Gas/Electric Bills: No Difficulty Paying for Meds: No Currently Unemployed: No Education: Trade/Vocational Certificate Difficulty w/ Childcare or Family Care: No Exam Narrative: GENERAL: Well-appearing, well-nourished, and in no acute distress. HEAD: Normocephalic. 8cm flap laceration to the top of the scalp EYES: PERRLA and EOMI. ENT: Nares clear, no rhinorrhea or epistaxis. Mucous membranes moist. Oropharynx without tonsillar hypertrophy exudate or other lesions. Bilateral TMs pearly skinner non-bulging NECK: Supple. No adenopathy or masses. No midline spinal tenderness CHEST: Clear to auscultation. No respiratory distress. No wheezes rales or rhonchi HEART: Regular rate and rhythm. No murmur heard. Normal peripheral pulses. EXTREMITIES: Normal range of motion. No edema. SKIN: Warm, dry, no rash. NEURO: No focal deficits. Alert and oriented x3. Cranial nerves 2-12 grossly intact PSYCH: Normal mood and affect Course Course Emergency Course: Patient updated on his workup and agrees with plan of care Vital Signs Vital signs: Vital Signs Temperature 98 F 02/07/24 16:36 Pulse Rate 64 02/07/24 16:36 Respiratory Rate 18 02/07/24 16:36 Blood Pressure 147/77 H 02/07/24 16:36 Pulse Oximetry 99 02/07/24 16:36 Oxygen Delivery Room Air 02/07/24 16:36 Temperature 98 F 02/07/24 16:36 Pulse Rate 60
[2024-02-07] MEDS: ACETAMINOPHEN 500 MG TABLET 1000 MG PO (18:53)
[2024-02-07] MEDS: LIDO 1%/EPINEPHRINE 1:100,000 20 ML VIAL 10 ML INFILTRATE (18:53)
[2024-02-07] MEDS: TETANUS,DIPHTHERIA,AC PERTUSSIS ADULT (0.5 ML) BOOSTRIX IM (19:52)
== END 2024-02-07 20:40 | disposition home or self-care (01) ==
PROVIDERS: Emergency Provider Physician Assistant; PCP Emergency Medicine
DX: S01.01XA Laceration without foreign body of scalp, initial encounter (principal); F17.210 Nicotine dependence, cigarettes, uncomplicated; F41.9 Anxiety disorder, unspecified; I10 Essential (primary) hypertension; W22.09XA Striking against other stationary object, initial encounter; Z23 Encounter for immunization
CPT/HCPCS: 12004; 70450; 90715; 96360; 99284; A9270

== ENCOUNTER 2024-09-06 01:29 | Day surgery (SDC) | payer BC, SELFPAY ==
[2024-08-27 14:33] VITALS: BMI 27.0
--- NOTE | 2024-09-02 09:12 | PC.NURSE ---
Spoke with patient regarding medication Plavix. Patient verbalizes understanding that the last dose is to be taken on 09/01/2024 and the Endoscopist will instruct them when to restart after the procedure.
--- OUTSIDE RECORDS SUMMARY | 2024-09-06 01:32 | XMS_ITS | Continuity of Care Document ---
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 [address] , [address], [place], [address], [place]. tel:[phone] Referring Provider: Gunnar Mohr, [address] [place] [address], [address]. tel:[phone] Family History Family Member Type Diagnosis Age At Onset No Information Payers Payer name Insurance type Covered republican ID Authoriza tion(s) No Information Social History Type Description Quantity Date Captured Comments Sex Male Smoking Status No Information Chief Complaint And Reason For Visit No Information Reason For Referral Reason For Referral No Information History Of Present Illness Encounter Date Complaint History Of Prese nt Illness No Information Functional Status Date Functional Assessmen t No Information Instructions Date Instruction Additional Infor mation No Information Assessments Type Assessment Date No Information Patient Care Teams Name Effective Dates (start - stop) Status Members No Information
[2024-09-06 12:16] VITALS: BP 116/70; PULSE 67; RESP 16; TEMP 36.3; O2SAT 97
[2024-09-06 12:17] VITALS: BMI 26.3
[2024-09-06] MEDS: LACTATED RINGERS 1,000 ML 150 ML IV CONT (12:29)
--- NOTE | 2024-09-06 13:16 | P.PNAN_ITS ---
Anes - Initial Pre Proc Eval Procedure: Operation Date: 09/06/24 13:30 Proposed Procedures p Screening Colonoscopy - Dandre Carson MD Date/Time: 09/06/24 13:16 Surgeon: Dandre Carson MD Pre Op Diagnosis: Screening Patient Data Age: 59 Gender: M Height: 1.7 m Weight: 76.3 kg Last Vital Signs Temp 97.4 F L 09/06/24 12:16 Pulse 67 09/06/24 12:16 Resp 16 09/06/24 12:16 BP 116/70 09/06/24 12:16 Pulse Ox 97 09/06/24 12:16 O2 Del Method Room Air 09/06/24 12:16 Allergies Allergy/AdvReac Type Severity Reaction Status Date / Time No Known Allergies Allergy Verified 09/06/24 12:15 Home Medications ?Medication ?Instructions ?Recorded ?Confirmed ?Type aspirin 81 mg tablet,delayed 81 mg PO DAILY 05/27/19 09/06/24 History release (Adult Low Dose Aspirin) multivitamin with minerals-folic 1 tablet PO DAILY 10/01/23 09/06/24 History acid 400 mcg-lycopene 370 mcg tablet (One-A-Day Men's 50 Plus) omega-3 fatty acids-fish oil 360 1 cap PO DAILY 10/01/23 09/06/24 History mg-1,200 mg capsule (Fish Oil) clonidine HCl 0.1 mg tablet See Rx Instructions .Route 03/17/24 09/06/24 Rx .COMPLEX #180 tabs naltrexone 50 mg tablet 50 mg PO DAILY #90 tabs 03/17/24 09/06/24 Rx atorvastatin 20 mg tablet See Rx Instructions .Route 06/15/24 09/06/24 Rx .COMPLEX #90 tabs clopidogrel 75 mg tablet See Rx Instructions .Route 06/15/24 09/06/24 Rx .COMPLEX #90 tabs fluoxetine 20 mg tablet 20 mg PO DAILY #90 tabs 07/28/24 09/06/24 Rx albuterol sulfate 90 mcg/actuation 1 inh inhalation Q4-6H PRN 08/27/24 08/27/24 History aerosol inhaler shortness of breath or wheezing quetiapine 50 mg tablet (Seroquel) 50 mg PO DAILY 08/27/24 09/06/24 History Patient hx anesthesia problems: none Family hx anesthesia problems: none Results Review: All pre-operative results and documents have been reviewed as part of the pre- operative evaluation. [facility] Past Medical History Medical History Alcohol dependence, uncomplicated Anxiety Essential (primary) hypertension Surgical History Surgical History H/O vasectomy History of appendectomy (~12/2017) Family History Family History Father Hypertension Mother Hypertension Family history of malignant neoplasm of breast in first degree relative Other Asthma Family history of Alzheimer's disease Social History Social History (Updated 07/15/24 @ 07:25 by Jacquie Downing MA) Social History: Caffeine-soda daily Smoking packs per day: 1 Smoking cigarettes per day: 20.0 Years smoked: 25 Smoking pack-years: 25.00 Smoking status: Current every day smoker Alcohol intake: former Substance use: never Substance use type: does not use Do You Feel Safe in your Home?: Yes Lack of Transportation: No Lack of Food: Never True Current Housing: I Have Housing Concerned About Future Housing: No Difficulty Paying Gas/Electric Bills: No Difficulty Paying for Meds: No Currently Unemployed: No Education: Trade/Vocational Certificate Difficulty w/ Childcare or Family Care: No Living arrangements: with family Caridads - Aisha Final PreProcedure Day of Procedure 09/06/24 13:16 Patient weight: normal Heart: regular rate and rhythm Lungs: clear to auscultation Airway: Mallampati scale class II Neurological: alert and oriented Last oral intake: >/= 8 hours ASA classification: III Emergent: no Anesthetic plan: proceed Anesthesia type and monitoring: general GIVS and standard monitoring Results Review: All pre-operative results and documents have been reviewed as part of the pre- operative evaluation. Informed Consent: The patient's anesthetic plan and its attendant risks and benefits were discussed with the patient/family/POA. Questions were solicited and answers provided to the satisfaction of the patient/family/POA.
--- NOTE | 2024-09-06 13:31 | P.HP_ITS ---
History of Present Illness History of Present Illness Consent: Risks, benefits, and alternatives have been discussed and questions answered. Patient agrees to proceed with procedure. Chief complaint: Screening Narrative: Сергей Crane is a 59 year old male here for first screening colonoscopy Review of Systems Review of Systems: All systems reviewed & are unremarkable except as noted in HPI and below PMFSH Past Medical History Medical History Alcohol dependence, uncomplicated Anxiety Essential (primary) hypertension Surgical History Surgical History H/O vasectomy History of appendectomy (~12/2017) Family History Family History Father Hypertension Mother Hypertension Family history of malignant neoplasm of breast in first degree relative Other Asthma Family history of Alzheimer's disease Social History Social History (Updated 07/15/24 @ 07:25 by Jacquie Downing MA) Social History: Caffeine-soda daily Smoking packs per day: 1 Smoking cigarettes per day: 20.0 Years smoked: 25 Smoking pack-years: 25.00 Smoking status: Current every day smoker Alcohol intake: former Substance use: never Substance use type: does not use Do You Feel Safe in your Home?: Yes Lack of Transportation: No Lack of Food: Never True Current Housing: I Have Housing Concerned About Future Housing: No Difficulty Paying Gas/Electric Bills: No Difficulty Paying for Meds: No Currently Unemployed: No Education: Trade/Vocational Certificate Difficulty w/ Childcare or Family Care: No Living arrangements: with family Meds Home Medications and Allergies Home Medications ?Medication ?Instructions ?Recorded ?Confirmed ?Type aspirin 81 mg tablet,delayed 81 mg PO DAILY 05/27/19 09/06/24 History release (Adult Low Dose Aspirin) multivitamin with minerals-folic 1 tablet PO DAILY 10/01/23 09/06/24 History acid 400 mcg-lycopene 370 mcg tablet (One-A-Day Men's 50 Plus) omega-3 fatty acids-fish oil 360 1 cap PO DAILY 10/01/23 09/06/24 History mg-1,200 mg capsule (Fish Oil) clonidine HCl 0.1 mg tablet See Rx Instructions .Route 03/17/24 09/06/24 Rx .COMPLEX #180 tabs naltrexone 50 mg tablet 50 mg PO DAILY #90 tabs 03/17/24 09/06/24 Rx atorvastatin 20 mg tablet See Rx Instructions .Route 06/15/24 09/06/24 Rx .COMPLEX #90 tabs clopidogrel 75 mg tablet See Rx Instructions .Route 06/15/24 09/06/24 Rx .COMPLEX #90 tabs fluoxetine 20 mg tablet 20 mg PO DAILY #90 tabs 07/28/24 09/06/24 Rx albuterol sulfate 90 mcg/actuation 1 inh inhalation Q4-6H PRN 08/27/24 08/27/24 History aerosol inhaler shortness of breath or wheezing quetiapine 50 mg tablet (Seroquel) 50 mg PO DAILY 08/27/24 09/06/24 History Allergies Allergy/AdvReac Type Severity Reaction Status Date / Time No Known Allergies Allergy Verified 09/06/24 12:15 Vital Signs Vital Signs - 24 hr 09/06/24 12:16 Temperature 97.4 F L Pulse Rate 67 Respiratory Rate 16 Blood Pressure 116/70 Pulse Oximetry 97 Oxygen Delivery Room Air Exam Const: General: comfortable and no acute distress HENMT: Face/Nose/Sinus: Normal nares present Eyes: General: appearance normal, both eyes and all related structures Neck: Neck: no JVD Resp: Auscultation: clear to auscultation bilaterally Cardio: Rate: regular rate Rhythm: regular rhythm GI: Inspection: non-distended GI Palp: Yes Soft to palpation Skin: General skin exam: normal color Neuro: Speech: normal speech Extrem: General: normal to inspection Psych: Mental Status: mental status grossly normal Assessment and Plan Assessment and plan (1) Colon cancer screening: Code(s): Z12.11 - Encounter for screening for malignant neoplasm of colon Status: Acute Assessment and Plan: colonoscopy
[2024-09-06 13:50] VITALS: BP 93/58; PULSE 62; RESP 13; O2SAT 97
[2024-09-06 14:00] VITALS: BP 109/57; PULSE 65; RESP 19; O2SAT 100
[2024-09-06 14:10] VITALS: BP 115/68; PULSE 60; RESP 17; O2SAT 100
== END 2024-09-06 14:23 | disposition home or self-care (01) ==
PROVIDERS: PCP Family Medicine; Visit Provider Internal Medicine Gastroenterology
PROC: 0DJD8ZZ Inspection of Lower Intestinal Tract, Via Natural or Artificial Opening Endoscopic (ICD-10-PCS; CPT 45378; principal; 2024-09-06 13:30)
DX: Z12.11 Encounter for screening for malignant neoplasm of colon (principal); K64.8 Other hemorrhoids; K57.30 Diverticulosis of large intestine without perforation or abscess without bleeding; I10 Essential (primary) hypertension; F41.9 Anxiety disorder, unspecified; F17.210 Nicotine dependence, cigarettes, uncomplicated; Z79.82 Long term (current) use of aspirin; Z79.02 Long term (current) use of antithrombotics/antiplatelets; Z79.51 Long term (current) use of inhaled steroids; Z98.890 Other specified postprocedural states; Z80.3 Family history of malignant neoplasm of breast
CPT/HCPCS: 45378; J2003; J2704; J7120